=== PATIENT | male | born 1970 | race Caucasian/White ===

== ENCOUNTER → 2018-03-31 | Outpatient (CLI) | payer BC ==
--- NOTE | 2018-03-31 11:50 | EST ---
EXERCISE STRESS DATE OF SERVICE: 03/31/2018 AGE: 47 SEX: Male HT: 6'1" WT: 232 PROTOCOL: Dutch STAGE: III DURATION OF EXERCISE: 10 minutes 30 seconds HEART RATE REST: 63 BLOOD PRESSURE REST: 123/66 MAXIMUM HEART RATE ACHIEVED: 164 MAXIMUM BLOOD PRESSURE: 190/74 85% MPHR: 149 100% MPHR: 175 METS: 12.1 INDICATIONS: Abnormal EKG. CLINICAL INFORMATION: Baseline EKG revealed normal sinus rhythm without significant ST-T changes. Patient walked on standard Dutch protocol for 10 minutes 30 seconds achieved a maximal heart rate of 164 beats per minute which is well above 85% of predicted maximal. He developed some fatigue and shortness of breath, but did not have any angina or arrhythmia. EKG did not reveal any ST-segment changes to indicate ischemia. By EKG criteria, this is a negative stress test with good exercise capacity. MYA / KALYAN: [id number] /
== END | disposition home or self-care (01) ==
LOC: RADNMMAIN 10:48
PROVIDERS: ATTEND Family Medicine
DX: R94.31 Abnormal electrocardiogram [ECG] [EKG] (principal)
CPT/HCPCS: 93017

== ENCOUNTER → 2018-11-25 | Outpatient (CLI) | payer BC ==
--- NOTE | 2018-11-25 16:26 | US ---
EXAMINATION TYPE: US scrotum with doppler. Grayscale and color Doppler Duplex imaging performed of t he scrotum. DATE OF EXAM: 11/25/2018 COMPARISON: NONE CLINICAL HISTORY: N50.89 DISORDER OF MALE GENITAL ORGANS. Right testicular pain x 1 week EXAM MEASUREMENTS: TESTICLES: Right Testicle: 5.5 x 2.4 x 3.5 cm Left Testicle: 4.9 x 1.9 x 3.2 cm EPIDIDYMIS HEAD: Right Epididymis: 0.9 x 1.4 x 1.4 cm Left Epididymis: 1.0 x 0.8 x 1.0 cm Doppler performed to assess for testicular vascularity; good bilateral color flow and waveforms are s een. There is no evidence of testicular torsion. Presence of hydroceles: right: 3.6cm, left: 3.5cm Presence of varicoceles: prominent vessels posterior to left testicle that increase with valsalva Right epididymis: heterogeneous hypervascular IMPRESSION: 1. The right epididymis is heterogeneous and hypervascular correlate for epididymitis. 2. There is bilateral hydroceles. A left-sided varicocele also suspected.
== END ==
LOC: RADUSWWP 15:31
PROVIDERS: ATTEND Family Medicine
DX: N43.3 Hydrocele, unspecified (principal)
CPT/HCPCS: 76870; 93975

== ENCOUNTER → 2019-04-24 | Outpatient (CLI) | payer BC ==
--- NOTE | 2019-04-24 09:20 | CT ---
EXAMINATION TYPE: CT abdomen pelvis wo con DATE OF EXAM: 04/24/2019 COMPARISON: None HISTORY: 48-year-old male Generalized abdominal pain, low Hgb CT DLP: 1011 mGycm. Automated exposure control for dose reduction was used. TECHNIQUE: Contiguous axial scanning of the abdomen and pelvis without IV contrast. Coronal and sagit abbe reconstructions performed. FINDINGS: Heart normal size without pericardial effusion. Tiny hiatal hernia. Lung bases clear without pleural effusion. Liver upper limits of normal in size at 17.0 cm. Noncontrast appearance of the liver shows a probable centrally located 7 mm cyst. Gallbladder, adrenal glands, right kidney, and pancreas show no gross abnormality by noncontrast CT. Spleen is mildly enlarged at 14.7 cm. There is a large heterogeneous density mass within the superior aspect of the left kidney measuring u p to 12.7 x 11.9 x 11.6 cm. Some borderline sized 7 mm nodularity in the left periaortic region is nonspecific. Otherwise, no add itional scattered prominent but nonenlarged mesenteric lymph nodes measure up to 5 mm. Normal appendix. No dilated small bowel, free fluid, or free air. Mild stool burden. Mild circumferential bladder wall thickening. Prostate gland mildly enlarged at 5.0 cm wide. Patulous left inguinal canal. A few prominent external iliac chain lymph nodes measure up to 1.0 cm and are n onspecific. No abnormal fluid collection in the pelvis. Bones: Mild degenerative spurring of the hips. IMPRESSION: 1. Noncontrast exam showing a large heterogeneous mass involving the superior aspect of the left kid jeffery measuring up to 12.7 x 11.9 cm. RCC needs to be excluded. 2. Borderline size 7 mm nodularity left periaortic region is nonspecific, possibly representing a re active retroperitoneal lymph node. Attention on follow-up. 3. Mild circumferential bladder wall thickening could represent chronic bladder wall hypertrophy or cystitis.
== END | disposition home or self-care (01) ==
LOC: RADCTMAIN 08:00
PROVIDERS: ATTEND Family Medicine
DX: N32.9 Bladder disorder, unspecified (principal); N28.89 Other specified disorders of kidney and ureter
CPT/HCPCS: 74176

== ENCOUNTER → 2019-05-20 | Outpatient (CLI) | payer BC ==
--- NOTE | 2019-05-20 11:42 | XR ---
EXAMINATION TYPE: XR chest 2V DATE OF EXAM: 05/20/2019 COMPARISON: None INDICATION: Renal cancer TECHNIQUE: Frontal and lateral views of the chest are obtained. FINDINGS: The heart size is normal. The pulmonary vasculature is normal. The lungs are clear. No suspicious expansile lesions are evident. No suspicious lung nodules are anika dent. IMPRESSION: 1. No acute pulmonary process.
[2019-05-20 11:49] LABS: African American GFR (CKD) >90 (>60 ml/min/1.73 sqM); Blood Urea Nitrogen 13 mg/dL (9-20); Non-African American GFR(CKD) >90 (>60 ml/min/1.73 sqM)
--- NOTE | 2019-05-20 15:27 | CT ---
EXAMINATION TYPE: CT abdomen pelvis w con DATE OF EXAM: 05/20/2019 COMPARISON: 04/24/2019 HISTORY: Follow up newfound renal CA. CT DLP: 1284.5 mGycm Automated exposure control for dose reduction was used. TECHNIQUE: Helical acquisition of images was performed from the lung bases through the pelvis. CONTRAST: Performed with Oral Contrast and with IV Contrast, patient injected with 80 mL of Isovue 300. FINDINGS: Lung bases are clear. There is no pleural effusion. Heart size is normal. Stomach appears normal. Liver and spleen appear normal. Bile ducts are not dilated. There is no pancr eatic mass. Gallbladder appears normal. There is 1 cm cyst in the anterior right lobe of the liver. There is 12 cm mixed density mass involving upper pole left kidney. There is anterior displacement of the tail of the pancreas. There is no adrenal mass. There is no hydronephrosis. Ureters are not dila pura. There is no retroperitoneal adenopathy. Bladder distends smoothly. There is no inguinal hernia. There is no free fluid in the pelvis. There is no mesenteric edema. There is no ascites or free air. Appendix appears normal. The bony pelvis appears intact. Lumbar spine is intact. IMPRESSION: LARGE LEFT RENAL MASS CONSISTENT WITH PRIMARY MALIGNANCY AND UNCHANGED COMPARED TO LAST EXAM. NO EVID ENCE OF METASTATIC DISEASE. SMALL HEPATIC CYST.
== END | disposition home or self-care (01) ==
LOC: RADCTMAIN 10:55
PROVIDERS: ATTEND Urology
DX: C64.2 Malignant neoplasm of left kidney, except renal pelvis (principal); K76.89 Other specified diseases of liver; Z88.1 Allergy status to other antibiotic agents
CPT/HCPCS: 82565; 84520; 71046; 74177; 36415; Q9967

== ENCOUNTER → 2020-08-29 | Outpatient (CLI) | payer BC ==
[~2020-08-29] MED LIST: AMINOPHYLLINE 500 MG/20 ML VIAL IV ONE; REGADENOSON 0.4 MG/5 ML SYRINGE IV ONE
--- NOTE | 2020-08-29 11:56 | NM ---
EXAMINATION TYPE: NM stress lexiscan cardiolite DATE OF EXAM: 08/29/2020 COMPARISON: Prior study May 22, 2011 HISTORY: History of hypercholesterolemia and family history of heart attack presents with difficulty in breathing TECHNIQUE: After the intravenous administration of 10.1 mCi Tc 99m Sestamibi - Cardiolite resting SP ECT images acquired 45 minutes post injection. The patient received 0.4mg Lexiscan, 24.9 mCi Tc 99m Sestamibi - Stress images obtained [address] injection FINDINGS: Review of stress and rest SPECT images demonstrates no distinct perfusion abnormality. Gated analysi s shows normal wall motion with an estimated left ventricular ejection fraction of 59 %. IMPRESSION: No scintigraphic evidence for reversible ischemia. No significant change from prior.
--- NOTE | 2020-08-29 12:39 | ECHOF ---
Referral Reason:R06.09 Dyspnea MEASUREMENTS -------- HEIGHT: 185.4 cm WEIGHT: 104.3 kg BP: RVIDd: 3.2 cm (< 3.3) IVSd: 1.3 cm (0.6 - 1.1) LVIDd: 4.3 cm (3.9 - 5.3) LVPWd: 1.7 cm (0.6 - 1.1) IVSs: 1.5 cm LVIDs: 3.0 cm LVPWs: 1.8 cm LAESV Index (A-L): 23.17 ml/m Ao Diam: 3.4 cm (2.0 - 3.7) AV Cusp: 2.8 cm (1.5 - 2.6) MV EXCURSION: 20.180 mm (> 18.000) MV EF SLOPE: 133 mm/s (70 - 150) EPSS: 0.4 cm MV E Álvaro: 0.85 m/s MV DecT: 177 ms MV A Álvaro: 0.70 m/s MV E/A Ratio: 1.23 RAP: 5.00 mmHg RVSP: 25.29 mmHg FINDINGS -------- Sinus rhythm. This was a technically adequate study. The left ventricular size is normal. There is mild concentric left ventricular hypertrophy. Overa ll left ventricular systolic function is normal with, an EF between 55 - 60 %. The diastolic fillin g pattern is normal for the age of the patient 12.19. The right ventricle is normal in size. Normal LA size by volume 22+/-6 ml/m2. The right atrial size is normal. Interatrial and interventricular septum intact. The aortic valve is trileaflet, and appears structurally normal. No aortic stenosis or regurgitation. The mitral valve is normal. Mild mitral regurgitation is present. The tricuspid valve appears structurally normal. Mild tricuspid regurgitation present. There is n o evidence of pulmonary hypertension. The right ventricular systolic pressure, as measured by Doppl er, is 25.29mmHg. There is no pulmonic regurgitation present. The aortic root size is normal. The inferior vena cava is mildly dilated. There is no pericardial effusion. CONCLUSIONS -------- 1. There is mild concentric left ventricular hypertrophy. 2. Overall left ventricular systolic function is normal with, an EF between 55 - 60 %. 3. The diastolic filling pattern is normal for the age of the patient 12.19 4. Normal LA size by volume 22+/-6 ml/m2. 5. The aortic valve is trileaflet, and appears structurally normal. No aortic stenosis or regurgitati on. 6. Mild mitral regurgitation is present. 7. Mild tricuspid regurgitation present. 8. The inferior vena cava is mildly dilated. WEIGHT CLERK: Blanca Ryan RDCS
--- NOTE | 2020-08-29 13:52 | EST ---
EXERCISE STRESS AGE: 50 SEX: M HT: 6'1" WT: 507 lbs. PROTOCOL: Lexiscan STAGE: N/A DURATION OF EXERCISE: N/A HEART RATE REST: 62 BLOOD PRESSURE REST: 115/76 MAXIMUM HEART RATE ACHIEVED: 97 MAXIMUM BLOOD PRESSURE: 115/76 85% MPHR: N/A 100% MPHR: N/A METS: N/A INDICATIONS: Dyspnea CLINICAL INFORMATION: Baseline rhythm is a sinus mechanism, rate of 62, borderline right axis deviation, poor R-wave progression, baseline blood pressure 115/76 mmHg. Patient received injection of Lexiscan. Electrocardiograph monitoring revealed no evidence of diagnostic ischemic ST deviation. Cardiolite was injected per protocol. CONCLUSION: 1. Nondiagnostic electrocardiograph stress testing. 2. Nuclear images will be reported separately. MMODL / IJN: [id number] /
== END | disposition home or self-care (01) ==
LOC: RADNMMAIN 08:54
PROVIDERS: ATTEND Family Medicine
DX: I08.1 Rheumatic disorders of both mitral and tricuspid valves (principal); I87.8 Other specified disorders of veins; R06.09 Other forms of dyspnea
CPT/HCPCS: 93017; 93306; 78452; A9500; J2785